=== PATIENT | female | born 1970 | race African-American/Black ===

== ENCOUNTER 2016-11-15 18:04 | Emergency (ER) | payer OTHER ==
[2016-11-15 18:09] VITALS: BP 141/91; PULSE 70; TEMP 98.9; BMI 20.7
[2016-11-15] MEDS ORDERED: IBUPROFEN 600 MG TABLET (FP) PO ONE ×2 (18:22→18:26)
[2016-11-15] MEDS ORDERED: CEPHALEXIN MONOHYDRATE 500 MG CAPSULE (UD) PO ONE (18:23)
[2016-11-15] MEDS ORDERED: CEPHALEXIN MONOHYDRATE 500 MG CAPSULE (UD) ONE (18:26)
--- NOTE | 2016-11-15 18:27 | PDOC ---
History of Present Illness - General Chief Complaint: Pain, Acute Stated Complaint: PAIN LT SIDE FACE Time Seen by Provider: 11/15/16 18:16 History Source: Patient Exam Limitations: No Limitations - History of Present Illness Initial Comments: 11/15/16 18:22 45 yr female with pain to left cheek radiating up her left side face to head since 4am. Pt has a pimple on her left cheek that she scratched at 2 days ago notices that it is red and swollen . no fever or chills denies dental pain. 11/15/16 18:27 Timing/Duration: reports: getting worse Severity: Yes: mild Location: reports: face (left cheek) Past History - Past Medical History Allergies/Adverse Reactions: Allergies Allergy/AdvReac Type Severity Reaction Status Date / Time No Known Allergies Allergy Verified 11/15/16 18:06 Home Medications: Ambulatory Orders Cephalexin [Keflex] 250 mg PO QID #28 capsule 11/15/16 Sulfamethoxazole/Trimethoprim [Bactrim Ds Tablet] 1 each PO BID #14 tablet 11/15 Asthma: Yes - Surgical History Abdominal Surgery: Yes - Immunization History Td Vaccination: Yes Immunization Up to Date: Yes - Psycho/Social/Smoking Cessation Hx Anxiety: No Suicidal Ideation: No Smoking Status: No Smoking History: Never smoked Years of Tobacco Use: 0 Number of Cigarettes Smoked Daily: 4 Cigars Per Day: 0 Hx Alcohol Use: No Drug/Substance Use Hx: No Substance Use Type: None Review of Systems - Review of Systems Able to Perform ROS?: Yes Is the patient limited Vincentian proficient: No Constitutional: No: Symptoms Reported HEENTM: No: Symptoms Reported Respiratory: No: Symptoms reported Cardiac (ROS): No: Symptoms Reported ABD/GI: No: Symptoms Reported : No: Symptoms Reported Musculoskeletal: No: Symptoms Reported Integumentary: Yes: Symptoms Reported *Physical Exam - Vital Signs Last Vital Signs Temp Pulse Resp BP Pulse Ox 98.9 F 70 18 141/91 99 11/15/16 18:06 11/15/16 18:06 11/15/16 18:06 11/15/16 18:06 11/15/16 18:06 - Physical Exam General Appearance: Yes: Nourished, Appropriately Dressed HEENT: positive: EOMI, FORD, Normal ENT Inspection, TMs Normal, Pharynx Normal, Other (tender to touch left maxilary line, tmj joint , FROM of the joint, tender to touch soft tissue cheek ) Neck: positive: Supple. negative: Lymphadenopathy (R), Lymphadenopathy (L) Respiratory/Chest: positive: Lungs Clear, Normal Breath Sounds Cardiovascular: positive: Regular Rhythm, Regular Rate Gastrointestinal/Abdominal: positive: Normal Bowel Sounds, Soft Lymphatic: negative: Adenopathy Musculoskeletal: positive: Normal Inspection Extremity: positive: Normal Capillary Refill, Normal Inspection, Normal Range of Motion Integumentary: positive: Other (left cheek with 1cm circular maclopaular erythmatous area with punctuate center , no drainage , no fluctuance ) Neurologic: positive: Alert, Normal Mood/Affect, Normal Response, Motor Strength /5 Medical Decision Making - Medical Decision Making 11/15/16 18:30 cc: pain to left side of face pt has a small raised area that she states "was a pimple I picked/scratched at it" now is red swollen and causing pain pt has no evidence of ENT infection or dental infections will treat for early cellulitus with strict follow up in 2 days pt is stable no fever or chills , has good follow up and understands the dc plan. all questions asked and answered. *DC/Admit/Observation/Transfer Diagnosis at time of Disposition: Cellulitis, face - Discharge Dispostion Disposition: HOME Condition at time of disposition: Good - Prescriptions Prescriptions: Sulfamethoxazole/Trimethoprim [Bactrim Ds Tablet] 1 each PO BID #14 tablet Cephalexin [Keflex] 250 mg PO QID #28 capsule - Referrals Referrals: Alan Castañeda MD [Primary Care Provider] - - Patient Instructions Additional Instructions: frequent warm moist compresses to the left side of the face every 4hrs for 20 minutes while awake take the prescribed antibiotics as directed take motrin 600-800mg every 6hrs for pain as needed follow with your doctor in 1-2 days Return to ER for any worsening symptoms
== END 2016-11-15 18:35 | disposition home or self-care (01) ==
LOC: SUPCPDRO 18:04 → JERFT 18:04
DX: L03.211 Cellulitis of face (principal)
CPT/HCPCS: 99281-25

== ENCOUNTER 2017-01-14 11:26 | Emergency (ER) | payer OTHER ==
[2017-01-14 11:31] VITALS: BP 128/75; PULSE 71; TEMP 98; BMI 21.5
[2017-01-14] MEDS ORDERED: NAPROXEN 500 MG TABLET (FP) PO ONE (11:57)
[2017-01-14] MEDS ORDERED: NAPROXEN 500 MG TABLET (FP) ONE (12:00)
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
== END 2017-01-14 12:28 | disposition home or self-care (01) ==
LOC: JERFT 11:26
DX: M25.512 Pain in left shoulder (principal); Y29.XXXA Contact with blunt object, undetermined intent, initial encounter; Y93.89 Activity, other specified; Y92.038 Other place in apartment as the place of occurrence of the external cause
CPT/HCPCS: 73030-TC-LT; 99281-25

== ENCOUNTER 2017-03-04 17:45 | Emergency (ER) | payer OTHER ==
[2017-03-04 17:52] VITALS: BP 108/72; PULSE 70; TEMP 98; BMI 21.5
--- NOTE | 2017-03-04 18:35 | PDOC ---
History of Present Illness - General Chief Complaint: Head/Neck problem Stated Complaint: NECK PAIN Time Seen by Provider: 03/04/17 18:32 History Source: Patient Exam Limitations: No Limitations - History of Present Illness Initial Comments: CHIEF COMPLAINT: 46 y/o afebrile female with no significant PMH c/o left sided neck pain for the past 2 days. HISTORY OF PRESENT ILLNESS: The patient states she woke up with left sided neck pain yesterday morning. She states it hurts when she turns her head and feels like a pulling/tightness. The patient denies head trauma, neck trauma, f/ c, n/v/d, changes in vision/hearing, numbness/tingling in extremities. She does have a shoulder injury which she is seeing Dr. Castañeda tomorrow about. SHe has not taken anything for pain. She denies any chance she could be . PCP is Dr. Castañeda. Vital signs on arrival are within normal limits. REVIEW OF SYSTEMS: GENERAL/CONSTITUTIONAL: No fever/chills. No weakness. No weight change. HEAD, EYES, EARS, NOSE AND THROAT: No change in vision. No ear pain or discharge. No sore throat. CARDIOVASCULAR: No chest pain or shortness of breath. RESPIRATORY: No cough, wheezing, or hemoptysis. GASTROINTESTINAL: No abd pain, nausea, vomiting, diarrhea. GENITOURINARY: No dysuria, frequency, or change in urination. MUSCULOSKELETAL: No joint or muscle swelling or pain. No back pain. +left sided neck pain. SKIN: No rash or easy bruising. NEUROLOGIC: No headache, vertigo, loss of consciousness, or loss of sensation. PHYSICAL EXAM: GENERAL: The patient is awake, alert, and fully oriented, in no acute distress. She is well appearing and ambulatory. HEAD: Normal with no signs of trauma. No mastoid TTP b/l. NECK: No midline cervical spine TTP, step offs or crepitus. Pain reproduced with lateral movement of cervical spine towards right shoulder. Pain reproduced with palpation of left cervical paravertebral muscles from C3 down to C6. Pain with palpation of left SCM and trap muscles. ENT: Pupils equal, round and reactive to light, extraocular movements intact, sclera anicteric, conjunctiva clear. TMs normal b/l. LUNGS: Clear to auscultation bilaterally. Normal excursion. No respiratory distress or use of accessory muscles. CV: RRR, S1/S2, no MRG. Cap refill < 2 sec. ABDOMEN: Soft, non-distended, non-tender even to deep palpation, no hepatomegaly or splenomegaly, no masses. EXTREMITIES: Patient cannot abduct her left arm > 90 degrees. NEUROLOGICAL: Normal speech, normal gait. CN II-XII grossly intact. PSYCH: Normal mood, normal affect. SKIN: Warm, dry, normal turgor, no rashes or lesions noted. Past History - Past Medical History Allergies/Adverse Reactions: Allergies Allergy/AdvReac Type Severity Reaction Status Date / Time No Known Allergies Allergy Verified 03/04/17 17:49 Home Medications: Ambulatory Orders NK [No Known Home Medication] 03/04/17 Asthma: Yes - Surgical History Abdominal Surgery: Yes - Immunization History Td Vaccination: Yes Immunization Up to Date: Yes - Psycho/Social/Smoking Cessation Hx Anxiety: No Suicidal Ideation: No Smoking Status: No Smoking History: Never smoked Years of Tobacco Use: 0 Have you smoked in the past 12 months: No Number of Cigarettes Smoked Daily: 4 Cigars Per Day: 0 Information on smoking cessation initiated: No Hx Alcohol Use: No Drug/Substance Use Hx: No Substance Use Type: None *Physical Exam - Vital Signs Last Vital Signs Temp Pulse Resp BP Pulse Ox 98.0 F 70 18 108/72 100 03/04/17 17:49 03/04/17 17:49 03/04/17 17:49 03/04/17 17:49 03/04/17 17:49 Medical Decision Making - Medical Decision Making A/P: 46 y/o female with torticollis. She informs me she does not like to take medicine and if she must take medicine she wants nothing stronger than Motrin. Plan is as follows: 1. IM toradol The patient was shown stretching exercises and encouraged to perform them hourly. Suggested she also apply heat and massage to the affected area, take 800mg of Motrin 3 times per day with food and keep her follow up appointment with Dr. Castañeda tomorrow as scheduled. The patient was instructed to return to the ER with any worsening or concerning symptoms. The patient verbalizes understanding of all instructions, has no further questions and is awaiting discharge. *DC/Admit/Observation/Transfer Diagnosis at time of Disposition: Acute torticollis - Discharge Dispostion Disposition: HOME Condition at time of disposition: Good - Referrals Referrals: Alan Castañeda MD [Primary Care Provider] - (Keep appointment for tomorrow) - Patient Instructions Printed Discharge Instructions: DI for Torticollis Additional Instructions: Discharge Instructions: -Take 800mg of Motrin with food 3 times per day for pain -Apply heat and massage to the affected area -Stretch your neck multiple times per day -Keep your appointment with Dr. Castañeda scheduled for tomorrow -Return to the ER with any worsening or concerning symptoms
[2017-03-04] MEDS ORDERED: KETOROLAC TROMETHAMINE 60 MG/2 ML VIAL IM ONE (18:51)
[2017-03-04] MEDS ORDERED: KETOROLAC TROMETHAMINE 30 MG/1 ML VIAL ONE (18:57)
== END 2017-03-04 19:10 | disposition home or self-care (01) ==
LOC: JERFT 17:45
PROC: 3E0233Z Introduction of Anti-inflammatory into Muscle, Percutaneous Approach (ICD-10-PCS; principal; 2017-03-04)
DX: M43.6 Torticollis (principal)
CPT/HCPCS: 96372; 99281-25

== ENCOUNTER 2017-06-30 20:49 | Emergency (ER) | payer OTHER ==
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
[2017-06-30 21:19] VITALS: BP 141/83; PULSE 71; TEMP 98; BMI 21.5
[2017-06-30] MEDS ORDERED: ACETAMINOPHEN 325 MG TABLET (FP) PO ONE (21:51)
[2017-06-30] MEDS ORDERED: ACETAMINOPHEN 325 MG TABLET (FP) ONE (21:58)
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
== END 2017-06-30 22:23 | disposition home or self-care (01) ==
LOC: JERFT 20:49
DX: S46.812A Strain of other muscles, fascia and tendons at shoulder and upper arm level, left arm, initial encounter (principal); X50.0XXA Overexertion from strenuous movement or load, initial encounter; Y93.F2 Activity, caregiving, lifting; Y92.89 Other specified places as the place of occurrence of the external cause; Y99.0 Civilian activity done for income or pay
CPT/HCPCS: 73030-TC-LT; 99281-25

== ENCOUNTER 2017-10-21 00:41 | Emergency (ER) | payer OTHER ==
[2017-10-21 01:38] VITALS: BP 126/69; PULSE 71; TEMP 97.8
--- NOTE | 2017-10-21 01:54 | PDOC ---
History of Present Illness - General History Source: Patient Exam Limitations: No Limitations - History of Present Illness Initial Comments: 10/21/17 02:12 The patient is a 46-year-old female, with no significant past medical history, who presents to the ED with chest pain that began on 10/14/17. The patient is currently not experiencing any shortness of breath but has shortness of breath on exertion. Denies any history of hypertension The patient denies any fever, chills, nausea, vomiting, or diarrhea. Denies any recent travel or sick contacts. Social History: Denies any tobacco use. <Carola Fonseca - Last Filed: 10/21/17 02:10> - General History Source: Patient <Eusebio Cancino - Last Filed: 10/21/17 19:27> - General Chief Complaint: Chest Pain Stated Complaint: PAIN Time Seen by Provider: 10/21/17 01:49 Past History <Carola Fonseca - Last Filed: 10/21/17 02:10> - Past Medical History Asthma: Yes COPD: No - Surgical History Abdominal Surgery: Yes - Immunization History Td Vaccination: Yes Immunization Up to Date: Yes - Suicide/Smoking/Psychosocial Hx Smoking Status: No Smoking History: Never smoked Years of Tobacco Use: 0 Have you smoked in the past 12 months: No Number of Cigarettes Smoked Daily: 2 Cigars Per Day: 0 Information on smoking cessation initiated: No Hx Alcohol Use: No Drug/Substance Use Hx: No Substance Use Type: None <SonyliveEusebio - Last Filed: 10/21/17 19:27> - Past Medical History Allergies/Adverse Reactions: Allergies Allergy/AdvReac Type Severity Reaction Status Date / Time No Known Allergies Allergy Verified 10/21/17 01:24 Home Medications: Ambulatory Orders Oxycodone HCl/Acetaminophen [Percocet 5-325 mg Tablet] 1 - 2 tab PO Q6H PRN #12 tab MDD 4 06/30/17 Review of Systems - Review of Systems Able to Perform ROS?: Yes Comments:: 10/21/17 02:14 CONSTITUTIONAL: Absent: fever, chills, diaphoresis, generalized weakness, malaise, loss of appetite HEENT: Absent: rhinorrhea, nasal congestion, throat pain, throat swelling, difficulty swallowing, mouth swelling, ear pain, eye pain, visual Changes CARDIOVASCULAR: Present: chest pain Absent: syncope, palpitations, irregular heart rate, lightheadedness, peripheral edema RESPIRATORY: Present: shortness of breath on exertion Absent: cough, orthopnea, wheezing, stridor, hemoptysis GASTROINTESTINAL: Absent: abdominal pain, abdominal distension, nausea, vomiting, diarrhea, constipation, melena, hematochezia GENITOURINARY: Absent: dysuria, frequency, urgency, hesitancy, hematuria, flank pain, genital pain MUSCULOSKELETAL: Absent: myalgia, arthralgia, joint swelling SKIN: Absent: rash, itching, pallor HEMATOLOGIC/IMMUNOLOGIC: Absent: easy bleeding, easy bruising, lymphadenopathy, frequent infections ENDOCRINE: Absent: unexplained weight gain, unexplained weight loss, heat intolerance, cold intolerance NEUROLOGIC: Absent: headache, focal weakness or paresthesias, dizziness, unsteady gait, seizure, mental status changes, bladder or bowel incontinence PSYCHIATRIC: Absent: anxiety, depression, suicidal or homicidal ideation, hallucinations. <Carola Fonseca - Last Filed: 10/21/17 02:10> *Physical Exam - Vital Signs Last Vital Signs Temp Pulse Resp BP Pulse Ox 97.8 F 71 20 126/69 99 10/21/17 01:24 10/21/17 01:24 10/21/17 01:24 10/21/17 01:24 10/21/17 01:24 - Physical Exam Comments: 10/21/17 02:17 GENERAL: Well developed, well nourished. Awake and alert. No acute distress. HEENT: Normocephalic, atraumatic. PERRLA, EOMI. No conjunctival pallor. Sclera are non- icteric. Moist mucous membranes. Oropharynx is clear. NECK: Supple. Full ROM. No JVD. Carotid pulses 2+ and symmetric, without bruits. No thyromegaly. No lymphadenopathy. CARDIOVASCULAR: Regular rate and rhythm. No murmurs, rubs, or gallops. Distal pulses are 2+ and symmetric. PULMONARY: No evidence of respiratory distress. Lungs clear to auscultation bilaterally. No wheezing, rales or rhonchi. ABDOMINAL: Soft. Non-tender. Non-distended. No rebound or guarding. No organomegaly. Normoactive bowel sounds. MUSCULOSKELETAL Normal range of motion at all joints. No bony deformities or tenderness. No CVA tenderness. EXTREMITIES: No cyanosis. No clubbing. No edema. No calf tenderness. SKIN: Warm and dry. Normal capillary refill. No rashes. No jaundice. NEUROLOGICAL: Alert, awake, appropriate. PSYCHIATRIC: Cooperative. Good eye contact. Appropriate mood and affect. <Carola Fonseca - Last Filed: 10/21/17 02:10> - Vital Signs Last Vital Signs Temp Pulse Resp BP Pulse Ox 97.8 F 71 20 126/69 99 10/21/17 01:24 10/21/17 01:24 10/21/17 01:24 10/21/17 01:24 10/21/17 01:24 <Eusebio Cancino - Last Filed: 10/21/17 19:27> Heart Score/ECG Review - ECG Intrepretation Comment:: 10/21/17 02:19 EKG was reviewed by Dr. Cancino at 1:27. Impression: Normal sinus rhythm. <Carola Fonseca - Last Filed: 10/21/17 02:10> ED Treatment Course - LABORATORY CBC & Chemistry Diagram: 10/21/17 02:23 10/21/17 02:23 <Eusebio Cancino - Last Filed: 10/21/17 19:27> Medical Decision Making - Medical Decision Making 10/21/17 19:27 Dr. Cancino: The scribe's documentation has been prepared under my direction and personally reviewed by me in its entirery. I confirm that the note above accurately reflects all work, treatment, procedures, and medical decision making performed by me. <Eusebio Cancino - Last Filed: 10/21/17 19:27> *DC/Admit/Observation/Transfer - Attestations Scribe Attestion: 10/21/17 02:18 Documentation prepared by Carola Fonseca, acting as ophthalmic medical assistant for Eusebio Cancino MD. <Carola Fonseca - Last Filed: 10/21/17 02:10> - Discharge Dispostion Admit: No <Eusebio Cancino - Last Filed: 10/21/17 19:27> Diagnosis at time of Disposition: Chest pain - Discharge Dispostion Disposition: HOME Condition at time of disposition: Stable - Referrals Referrals: Alan Castañeda MD [Primary Care Provider] - Antwan Larson MD [Staff Physician] - - Patient Instructions Printed Discharge Instructions: DI for Chest Pain Additional Instructions: Please follow up with cardiology if symptoms continue. - Post Discharge Activity Forms/Work/School Notes: Back to Work
[2017-10-21 02:35] LABS: BASO % 1.2 % (0-2.0); EOS % 2.3 % (0-4.5); HEMATOCRIT 34.8 % (32.4-45.2); HEMOGLOBIN 11.7 GM/dL (10.7-15.3); LYMPH % 33.1 % (8-40); MCH 31.6 pg (25.7-33.7); MCHC 33.7 g/dl (32.0-36.0); MEAN CELL VOLUME 93.5 fl (80-96); MEAN PLT VOLUME 9.3 fl (7.5-11.1); MONO % 9.8 % (3.8-10.2); NEUT % 53.6 % (42.8-82.8); PLATELET COUNT 199 K/MM3 (134-434); RBC 3.72 M/mm3 (3.60-5.2); WHITE BLOOD COUNT 4.5 K/mm3 (4.0-10.0)
[2017-10-21 03:12] LABS: ALBUMIN 3.3 g/dl (3.4-5.0); ANION GAP 6 (8-16); BILIRUBIN,TOTAL 0.4 mg/dL (0.2-1.0); BLOOD UREA NITROGEN 15 mg/dL (7-18); CALCIUM 7.7 mg/dL (8.5-10.1); CHLORIDE 109 mmol/L (98-107); CO2 25 mmol/L (21-32); CREATININE 0.7 mg/dL (0.55-1.02); GLUCOSE,RANDOM 103 mg/dL (74-106); POTASSIUM 3.9 mmol/L (3.5-5.1); SGOT/AST 18 U/L (15-37); SGPT/ALT 17 U/L (12-78); SODIUM 140 mmol/L (136-145); TOT PROT 6.5 g/dl (6.4-8.2)
[2017-10-21 03:14] LABS: ALK PHOS 74 U/L (45-117)
--- NOTE | 2017-10-25 11:44 | EKG ---
Test Reason : Blood Pressure : / mmHG Vent. Rate : 063 BPM Atrial Rate : 063 BPM P-R Int : 140 ms QRS Dur : 080 ms QT Int : 424 ms P-R-T Axes : 049 065 050 degrees QTc Int : 433 ms NORMAL SINUS RHYTHM NORMAL ECG NO PREVIOUS ECGS AVAILABLE Confirmed by JOE VILLARREAL MD ([id number]) on 10/25/2017 11:43:58 AM Referred By: Confirmed By:JOE VILLARREAL MD
== END 2017-10-21 03:37 | disposition home or self-care (01) ==
LOC: JER 00:41
DX: R07.9 Chest pain, unspecified (principal); Z87.09 Personal history of other diseases of the respiratory system
CPT/HCPCS: 36415; 80053; 82550; 84484; 84703; 85025; 85379; 93005; 93010; 99283-25

== ENCOUNTER 2017-12-09 23:32 | Emergency (ER) | payer OTHER ==
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
[2017-12-10] MEDS ORDERED: IBUPROFEN 600 MG TABLET (FP) PO ONE ×2 (00:10→00:15)
[2017-12-10 00:22] VITALS: BP 128/76; PULSE 85; TEMP 97.6; BMI 26.6
== END 2017-12-10 01:32 | disposition left against medical advice (07) ==
LOC: JER 23:32
PROC: 0RSXXZZ Reposition Left Finger Phalangeal Joint, External Approach (ICD-10-PCS; principal; 2017-12-09)
DX: S63.251A Unspecified dislocation of left index finger, initial encounter (principal); Y04.2XXA Assault by strike against or bumped into by another person, initial encounter; Y93.89 Activity, other specified; Y92.89 Other specified places as the place of occurrence of the external cause; Y99.8 Other external cause status
CPT/HCPCS: 99283-25

== ENCOUNTER 2018-06-12 11:56 | Emergency (ER) | payer OTHER ==
[2018-06-12 12:09] VITALS: BP 139/95; PULSE 81; TEMP 98.6; BMI 21.5
[2018-06-12] MEDS ORDERED: ACETAMINOPHEN 325 MG TABLET (FP) PO ONE (12:28)
[2018-06-12] MEDS ORDERED: ACETAMINOPHEN 325 MG TABLET (FP) ONE (12:33)
--- NOTE | 2018-06-12 12:33 | PDOC ---
History of Present Illness - General Chief Complaint: Toothache Stated Complaint: TOOTHACHE Time Seen by Provider: 06/12/18 12:11 History Source: Patient Exam Limitations: No Limitations - History of Present Illness Initial Comments: 06/12/18 12:29 47 year old female presents to ED with complaints of left lower quadrant dental pain for the past few days. Patient has been lying topical Anbesol with no improvement. Patient denies swelling to the face, fever, chills recent dental work to the tooth, or foul tasting fluid in her mouth. Timing/Duration: other (2 days) Severity: mild Associated Symptoms: reports: other Past History - Travel Traveled outside of the country in the last 30 days: No Close contact w/someone who was outside of country & ill: No - Past Medical History Allergies/Adverse Reactions: Allergies Allergy/AdvReac Type Severity Reaction Status Date / Time No Known Allergies Allergy Verified 06/12/18 12:09 Home Medications: Ambulatory Orders NK [No Known Home Medication] 06/12/18 Asthma: Yes COPD: No - Surgical History Abdominal Surgery: Yes - Immunization History Td Vaccination: Yes Immunization Up to Date: Yes - Suicide/Smoking/Psychosocial Hx Smoking Status: No Smoking History: Former smoker Years of Tobacco Use: 0 Have you smoked in the past 12 months: Yes Number of Cigarettes Smoked Daily: 2 Cigars Per Day: 0 Information on smoking cessation initiated: No Hx Alcohol Use: No Drug/Substance Use Hx: No Substance Use Type: None Patient Lives Alone: No Lives with/in: spouse/SO Review of Systems - Review of Systems Able to Perform ROS?: Yes Constitutional: No: Symptoms Reported HEENTM: Yes: Mouth Pain, Dental Problems Respiratory: No: Symptoms reported Musculoskeletal: No: Symptoms Reported Integumentary: No: Symptoms Reported Neurological: No: Headache *Physical Exam - Vital Signs Last Vital Signs Temp Pulse Resp BP Pulse Ox 98.6 F 81 18 139/95 99 06/12/18 12:07 06/12/18 12:07 06/12/18 12:07 06/12/18 12:07 06/12/18 12:07 - Physical Exam General Appearance: Yes: Nourished, Appropriately Dressed. No: Apparent Distress HEENT: positive: EOMI, FORD, Pharynx Normal (No obvious abscess, no dental decay to #20 tooth) Neck: positive: Supple. negative: Lymphadenopathy (L) Integumentary: negative: Swelling Neurologic: positive: Motor Strength 5/5 (ambulatory) Medical Decision Making - Medical Decision Making 06/12/18 12:31 Chief complaint: Left lower quadrant dental pain with no improvement of topical Anbesol Exam: No obvious abscess or dental decay to tooth #20 Plan Percocet here and discharged home with the same. Patient states can get an appointment with her dentist this week *DC/Admit/Observation/Transfer Diagnosis at time of Disposition: Pain, dental - Discharge Dispostion Disposition: HOME Condition at time of disposition: Good - Referrals Referrals: Alan Castañeda MD [Primary Care Provider] - - Patient Instructions Printed Discharge Instructions: DI for Dental Pain Additional Instructions: Please avoid extreme hot or cold fluids. Please avoid chewing on that side of the mouth May take Percocet for extreme pain. Please follow up with the dentist. - Post Discharge Activity
== END 2018-06-12 12:44 | disposition home or self-care (01) ==
LOC: JERFT 11:56
DX: K08.89 Other specified disorders of teeth and supporting structures (principal)
CPT/HCPCS: 99281-25

== ENCOUNTER 2018-12-23 00:13 | Emergency (ER) | payer OTHER | END 2018-12-23 02:08 | disposition home or self-care (01) | LOC: JER 00:13 ==

== ENCOUNTER 2019-01-28 09:13 | Emergency (ER) | payer OTHER ==
[2019-01-28 09:21] VITALS: BP 107/66; PULSE 69; TEMP 98.4; BMI 23.6
--- NOTE | 2019-01-28 09:40 | PDOC ---
History of Present Illness - General Chief Complaint: Pain Stated Complaint: ABD PAIN Time Seen by Provider: 01/28/19 09:40 History Source: Patient Exam Limitations: No Limitations - History of Present Illness Initial Comments: 01/28/19 09:40 CHIEF COMPLAINT: Abdominal pain HISTORY OF PRESENT ILLNESS: This is a 48-year-old female with a history of mild intermittent asthma who presents complaining of abdominal pain. She indicates the epigastric area and states that the pain has been constant since yesterday after eating a sandwich with cheese (patient is lactose intolerant and thinks symptoms may be attributable to this). She has had several episodes of similar pain in the past. She denies nausea/vomiting. She has had "loose" stools without blood. PCP is Dr. Alan Castañeda. Patient denies smoking, alcohol use, drug use. Vital signs on arrival are unremarkable. REVIEW OF SYSTEMS: GENERAL/CONSTITUTIONAL: No fever or chills. No weakness. No weight change. HEAD, EYES, EARS, NOSE AND THROAT: No change in vision. No ear pain or discharge. No sore throat. CARDIOVASCULAR: No chest pain or palpitations. RESPIRATORY: No cough, wheezing, or shortness of breath. GASTROINTESTINAL: No nausea, vomiting, or constipation. "Loose" stools. No hematochezia. GENITOURINARY: No dysuria, frequency, or change in urination. MUSCULOSKELETAL: No joint or muscle swelling or pain. No neck or back pain. SKIN: No rash or easy bruising. NEUROLOGIC: No headache, vertigo, loss of consciousness, or loss of sensation. PSYCHIATRIC: No depression or anxiety. ENDOCRINE: No increased thirst. No abnormal weight change. HEMATOLOGIC/LYMPHATIC: No anemia, easy bleeding, or history of blood clots. ALLERGIC/IMMUNOLOGIC: No hives or skin allergy. No latex allergy. PHYSICAL EXAM: GENERAL: The patient is awake, alert, and fully oriented, in no acute distress. HEAD: Normal with no signs of trauma. ENT: Pupils equal, round and reactive to light, extraocular movements intact, sclera anicteric, conjunctiva clear. Neck supple. LUNGS: Clear to auscultation bilaterally. Normal excursion. No respiratory distress or use of accessory muscles. CV: RRR, S1/S2, no MRG. Cap refill < 2 sec. ABDOMEN: Soft, non-distended, tender to palpation in epigastrium only without guarding or rebound tenderness. EXTREMITIES: Normal range of motion, no edema. NEUROLOGICAL: Normal speech, normal gait. CN II-XII grossly intact. PSYCH: Normal mood, normal affect. SKIN: Warm, dry, normal turgor, no rashes or lesions noted. Past History - Past Medical History Allergies/Adverse Reactions: Allergies Allergy/AdvReac Type Severity Reaction Status Date / Time lactose Allergy Verified 01/28/19 09:21 Home Medications: Ambulatory Orders Oxycodone HCl/Acetaminophen [Percocet 5-325 mg Tablet] 1 - 2 tab PO Q6H PRN #8 tab MDD 4 06/12/18 Asthma: Yes COPD: No - Surgical History Abdominal Surgery: Yes - Immunization History Td Vaccination: Yes Immunization Up to Date: Yes - Suicide/Smoking/Psychosocial Hx Smoking Status: No Smoking History: Never smoked Years of Tobacco Use: 0 Have you smoked in the past 12 months: Yes Number of Cigarettes Smoked Daily: 2 Cigars Per Day: 0 Hx Alcohol Use: No Drug/Substance Use Hx: No Substance Use Type: None *Physical Exam - Vital Signs Last Vital Signs Temp Pulse Resp BP Pulse Ox 98.4 F 69 18 107/66 99 01/28/19 09:18 01/28/19 09:18 01/28/19 09:18 01/28/19 09:18 01/28/19 09:18 ED Treatment Course - LABORATORY CBC & Chemistry Diagram: 01/28/19 09:48 01/28/19 09:48 Medical Decision Making - Medical Decision Making 01/28/19 09:55 A/P: 48-year-old female with epigastric pain, possibly secondary to lactose intake. 1. Labs including CBC, CMP, lipase 2. Pepcid 20 mg IV E back and Maalox suspension 30 mLs orally once for symptom relief 3. Reassess *DC/Admit/Observation/Transfer Diagnosis at time of Disposition: Epigastric pain - Discharge Dispostion Disposition: HOME Condition at time of disposition: Stable Decision to Admit order: No - Referrals Referrals: Alan Castañeda MD [Primary Care Provider] - 3 days - Patient Instructions Printed Discharge Instructions: Gulf Diet, DI for Gastritis Additional Instructions: -Eat a bland diet until your symptoms improve (instructions enclosed) -Take pepcid as prescribed for stomach pain -Follow up with Dr. Garry next week to have your lab work repeated (you have some anemia today and need to make sure it is not worsening) -Return here for worsening pain, blood in your bowel movements, or any other concerning symptoms - Post Discharge Activity Forms/Work/School Notes: Back to Work
[2019-01-28] MEDS ORDERED: MAG HYDROX/AL HYDROX/SIMETH -MYLANTA- ORAL SUSPENSION PO ONE (09:49)
[2019-01-28] MEDS ORDERED: FAMOTIDINE 20 MG/50 ML IVPB 20 MG in PREMIX 50 IVPB ONE (09:49)
[2019-01-28] MEDS ORDERED: MAG HYDROX/AL HYDROX/SIMETH 30 ML UNIT-DOSE CUP ONE (09:59)
[2019-01-28 10:29] LABS: BASO % 0.9 % (0-2.0); EOS % 1.6 % (0-4.5); HEMATOCRIT 32.7 % (32.4-45.2); HEMOGLOBIN 10.6 GM/dL (10.7-15.3); LYMPH % 25.9 % (8-40); MCHC 32.5 g/dl (32.0-36.0); MEAN CELL VOLUME 89.1 fl (80-96); MONO % 9.7 % (3.8-10.2); NEUT % 61.9 % (42.8-82.8); PLATELET COUNT 246 K/MM3 (134-434); RBC 3.67 M/mm3 (3.60-5.2); RDW 15.8 % (11.6-15.6); WHITE BLOOD COUNT 4.6 K/mm3 (4.0-10.0)
[2019-01-28 10:39] LABS: HYALINE CASTS 2 /lpf (0-8); PH,URINE 5.5 (5.0-8.0); URINE APPEARANCE CLEAR; URINE BACTERIA 66.9 /hpf (NEGATIVE); URINE BILIRUBIN NEGATIVE (NEGATIVE); URINE COLOR YELLOW; URINE GLUCOSE (UA) NEGATIVE (NEGATIVE); URINE KETONE NEGATIVE (NEGATIVE); URINE LEUK ESTERASE NEGATIVE (NEGATIVE); URINE NITRITE NEGATIVE (NEGATIVE); URINE PROTEIN NEGATIVE (NEGATIVE); URINE RBC 86 /hpf (0-4); URINE UROBILINOGEN 0.2 mg/dL (0.2-1.0); URINE WBC 3 /hpf (0-5)
[2019-01-28 10:54] LABS: ALBUMIN 3.4 g/dl (3.4-5.0); BILIRUBIN,TOTAL 0.5 mg/dL (0.2-1); BLOOD UREA NITROGEN 12.3 mg/dL (7-18); CALCIUM 8.1 mg/dL (8.5-10.1); CREATININE 0.6 mg/dL (0.55-1.3); POTASSIUM 4.2 mmol/L (3.5-5.1); TOT PROT 6.4 g/dl (6.4-8.2)
== END 2019-01-28 11:29 | disposition home or self-care (01) ==
LOC: JER 09:13
PROC: 3E033GC Introduction of Other Therapeutic Substance into Peripheral Vein, Percutaneous Approach (ICD-10-PCS; principal; 2019-01-28)
DX: R10.13 Epigastric pain (principal); J45.20 Mild intermittent asthma, uncomplicated
CPT/HCPCS: 36415; 80053; 81003; 83690; 84703; 85025; 96365; 99281-25

== ENCOUNTER 2019-05-20 08:08 | Emergency (ER) | payer OTHER ==
[2019-05-20 08:20] VITALS: BMI 23.6
[2019-05-20] MEDS ORDERED: IBUPROFEN 400 MG TABLET (FP) PO ONE ×2 (08:23→08:25)
--- NOTE | 2019-05-20 08:26 | PDOC ---
History of Present Illness - General Chief Complaint: Pain Stated Complaint: NECK PAIN Time Seen by Provider: 05/20/19 08:20 History Source: Patient (left sided neck pain since yesterday) Exam Limitations: No Limitations - History of Present Illness Is this a multiple visit Asthma Patient?: No Associated Symptoms: denies: fever/chills, headaches, nausea/vomiting, rash, shortness of breath, weakness Past History - Travel Traveled outside of the country in the last 30 days: No Close contact w/someone who was outside of country & ill: No - Past Medical History Allergies/Adverse Reactions: Allergies Allergy/AdvReac Type Severity Reaction Status Date / Time lactose Allergy Verified 05/20/19 08:11 Home Medications: Ambulatory Orders Albuterol Sulfate Inhaler - [Ventolin HFA Inhaler -] 2 puff PO PRN 05/20/19 Cyclobenzaprine HCl [Flexeril -] 10 mg PO TID #21 tablet 05/20/19 Ibuprofen 600 mg PO ACDIN 7 Days #21 tablet 05/20/19 Asthma: Yes COPD: No - Surgical History Abdominal Surgery: Yes - Immunization History Td Vaccination: Yes Immunization Up to Date: Yes - Psycho Social/Smoking Cessation Hx Smoking Status: No Smoking History: Never smoked Years of Tobacco Use: 0 Have you smoked in the past 12 months: Yes Number of Cigarettes Smoked Daily: 2 Cigars Per Day: 0 Hx Alcohol Use: No Drug/Substance Use Hx: No Substance Use Type: None Review of Systems - Review of Systems Constitutional: No: Chills, Fever HEENTM: No: Throat Pain, Throat Swelling Cardiac (ROS): No: Chest Pain ABD/GI: No: Nausea, Vomiting Musculoskeletal: Yes: Neck Pain. No: Joint Swelling, Muscle Weakness, Joint Stiffness Neurological: No: Headache, Numbness, Paresthesia, Pre-Existing Deficit, Tingling, Tremors, Weakness, Dizziness *Physical Exam - Vital Signs Last Vital Signs Temp Pulse Resp BP Pulse Ox 98.2 F 63 16 131/78 100 05/20/19 08:12 05/20/19 08:12 05/20/19 08:12 05/20/19 08:12 05/20/19 08:12 - Physical Exam General Appearance: Yes: Nourished HEENT: positive: EOMI, FORD, Pharynx Normal Neck: positive: Supple Respiratory/Chest: positive: Lungs Clear, Normal Breath Sounds Cardiovascular: positive: Regular Rhythm, Regular Rate, S1, S2 Musculoskeletal: positive: Decreased Range of Motion (due to pain), Muscle Spasm (+ paraspinal tenderness to the left side of neck) 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 Presents with left-sided neck pain after attempting to lift a heavy pot at work yesterday. Patient reports this is not a Worker's Compensation case she reports she was she presented to work with a mild discomfort to left side of neck that day. She denies any headaches, fever, chills any trauma. On examination there is paraspinal tenderness on the left side of the neck limited range of motion due to pain she is otherwise well-appearing supple neck there is no lymphadenopathy. Motrin given in the emergency room muscle relaxer since her pharmacy with instructions to lay flat for the next few days range of motion was encourage warm compresses to the area Discharge - Discharge Information Problems reviewed: Yes Clinical Impression/Diagnosis: Neck sprain Qualifiers: Encounter type: initial encounter Qualified Code(s): S13.9XXA - Sprain of joints and ligaments of unspecified parts of neck, initial encounter Condition: Good Disposition: HOME - Admission No - Additional Discharge Information Prescriptions: Cyclobenzaprine HCl [Flexeril -] 10 mg PO TID #21 tablet Ibuprofen 600 mg PO ACDIN 7 Days #21 tablet Prescription Drug Monitoring Program (I-STOP) results: I-STOP not reviewed - Follow up/Referral Referrals: Alan Castañeda MD [Primary Care Provider] - - Patient Discharge Instructions Patient Printed Discharge Instructions: DI for Neck Sprain Additional Instructions: Please apply warm compress to neck lie flat for the next few days return to the ER If worsening symptoms occurs - Post Discharge Activity Work/Back to School Note: Back to Work
[2019-05-20 08:32] VITALS: BP 125/84; PULSE 64; TEMP 98
== END 2019-05-20 08:32 | disposition home or self-care (01) ==
LOC: JER 08:08 → JERFT 08:08
DX: S13.8XXA Sprain of joints and ligaments of other parts of neck, initial encounter (principal); X50.0XXA Overexertion from strenuous movement or load, initial encounter; Y93.89 Activity, other specified; Y92.098 Other place in other non-institutional residence as the place of occurrence of the external cause; Y99.0 Civilian activity done for income or pay; Z91.02 Food additives allergy status
CPT/HCPCS: 99282-25

== ENCOUNTER 2020-09-07 18:04 | Emergency (ER) | payer OTHER ==
[2020-09-07 18:21] VITALS: BP 118/58; PULSE 63; TEMP 98.4; BMI 22.9
== END 2020-09-07 20:00 | disposition home or self-care (01) ==
LOC: JERFT 18:04
DX: M25.511 Pain in right shoulder (principal)
CPT/HCPCS: 73030-TC-RT-FY; 99283-25

== ENCOUNTER 2020-09-10 10:45 | Emergency (ER) | payer OTHER ==
[2020-09-10 10:55] VITALS: BP 124/73; PULSE 78; TEMP 99.1; BMI 23.6
[2020-09-10] MEDS ORDERED: KETOROLAC TROMETHAMINE 30 MG/1 ML VIAL IM ONE (11:12)
[2020-09-10] MEDS ORDERED: KETOROLAC TROMETHAMINE 30 MG/1 ML VIAL ONE (11:15)
== END 2020-09-10 12:30 | disposition home or self-care (01) ==
LOC: JER 10:45
PROC: 3E0233Z Introduction of Anti-inflammatory into Muscle, Percutaneous Approach (ICD-10-PCS; principal; 2020-09-10)
DX: M25.562 Pain in left knee (principal)
CPT/HCPCS: 72050-TC-FY; 72070-TC-FY; 73110-TC-LT-FY; 73562-TC-LT-FY; 99285-25

== ENCOUNTER 2022-12-06 12:59 | Emergency (ER) | payer OTHER ==
[2022-12-06 13:04] VITALS: BP 133/84; PULSE 80; RESP 18; TEMP 97; BMI 23.6
[2022-12-06] MEDS ORDERED: CYCLOBENZAPRINE HCL 10 MG TABLET (FP) PO ONE (13:17)
[2022-12-06] MEDS ORDERED: ACETAMINOPHEN 500 MG TABLET (FP) PO ONE (13:17)
[2022-12-06] MEDS ORDERED: LIDOCAINE 5% TOPICAL PATCH TP ONE (13:17)
[2022-12-06] MEDS ORDERED: IBUPROFEN 600 MG TABLET (FP) PO ONE ×2 (13:17→13:27)
[2022-12-06] MEDS ORDERED: CYCLOBENZAPRINE HCL 10 MG TABLET (FP) ONE (13:27)
[2022-12-06] MEDS ORDERED: ACETAMINOPHEN 325 MG TABLET (FP) ONE (13:27)
[2022-12-06] MEDS ORDERED: LIDOCAINE 5% TOPICAL PATCH ONE (13:28)
[2022-12-06] MEDS ORDERED: LIDOCAINE PATCH REMOVAL MC SCH (22:00)
== END 2022-12-06 14:29 | disposition home or self-care (01) ==
LOC: JER 12:59
DX: M54.42 Lumbago with sciatica, left side (principal)
CPT/HCPCS: 72100-TC-FY; 73502-TC-LT-FY; 99284-25

== ENCOUNTER 2023-02-26 00:33 | Emergency (ER) | payer OTHER ==
[2023-02-26 00:58] VITALS: BP 160/96; PULSE 62; RESP 18; TEMP 98.4; BMI 23.6
[2023-02-26] MEDS ORDERED: KETOROLAC TROMETHAMINE 15 MG/ML VIAL IM ONE (01:42)
[2023-02-26] MEDS ORDERED: METHOCARBAMOL 500 MG TABLET PO ONE (01:44)
[2023-02-26] MEDS ORDERED: ACETAMINOPHEN 500 MG TABLET (FP) PO ONE (01:44)
[2023-02-26] MEDS ORDERED: LIDOCAINE 5% TOPICAL PATCH TP ONE (01:44)
[2023-02-26] MEDS ORDERED: KETOROLAC TROMETHAMINE 15 MG/ML VIAL ONE (01:46)
[2023-02-26] MEDS ORDERED: LIDOCAINE 5% TOPICAL PATCH ONE (01:55)
[2023-02-26] MEDS ORDERED: METHOCARBAMOL 500 MG TABLET ONE (01:55)
[2023-02-26] MEDS ORDERED: LIDOCAINE PATCH REMOVAL MC ONE (14:00)
== END 2023-02-26 02:31 | disposition home or self-care (01) ==
LOC: JER 00:33
PROC: 3E0233Z Introduction of Anti-inflammatory into Muscle, Percutaneous Approach (ICD-10-PCS; principal; 2023-02-26)
DX: M54.2 Cervicalgia (principal); M25.511 Pain in right shoulder; R53.1 Weakness; G89.29 Other chronic pain
CPT/HCPCS: 99284-25

== ENCOUNTER 2023-05-30 17:46 | Emergency (ER) | payer OTHER ==
[2023-05-30 17:52] VITALS: BP 148/85; PULSE 71; RESP 18; TEMP 98.2; BMI 23.6
[2023-05-30] MEDS ORDERED: IBUPROFEN 600 MG TABLET (FP) PO ONE ×2 (18:40→18:43)
[2023-05-30] MEDS ORDERED: ACETAMINOPHEN 500 MG TABLET (FP) PO ONE (18:40)
[2023-05-30] MEDS ORDERED: ACETAMINOPHEN 500 MG TABLET (FP) ONE (18:43)
== END 2023-05-30 19:32 | disposition home or self-care (01) ==
LOC: JERFT 17:46 → JER 17:46 → JERFT 19:32
DX: M25.562 Pain in left knee (principal); M25.462 Effusion, left knee
CPT/HCPCS: 73562-TC-LT-FY; 99283-25

== ENCOUNTER 2023-07-12 21:41 | Emergency (ER) | payer OTHER ==
[2023-07-12 21:50] VITALS: BP 138/84; PULSE 72; RESP 18; TEMP 97.8; BMI 23.6
[2023-07-13] MEDS ORDERED: DIPHTH,PERTUSS(ACELL),TET 0.5 ML DISP.SYRIN IM ONE ×3 (00:04→01:10)
[2023-07-13] MEDS ORDERED: ACETAMINOPHEN 500 MG TABLET (FP) PO ONE (00:04)
[2023-07-13] MEDS ORDERED: ACETAMINOPHEN 325 MG TABLET (FP) ONE (00:47)
[2023-07-13] MEDS ORDERED: ACETAMINOPHEN 500 MG TABLET (FP) ONE (01:10)
== END 2023-07-13 01:15 | disposition home or self-care (01) ==
LOC: JER 21:41
PROC: 0HQFXZZ Repair Right Hand Skin, External Approach (ICD-10-PCS; principal; 2023-07-12)
PROC: 3E0234Z Introduction of Serum, Toxoid and Vaccine into Muscle, Percutaneous Approach (ICD-10-PCS; 2023-07-12)
DX: S61.214A Laceration without foreign body of right ring finger without damage to nail, initial encounter (principal); W29.0XXA Contact with powered kitchen appliance, initial encounter
CPT/HCPCS: 12001-25; 73130-TC-RT-FY; 90471; 90715; 99283-25